=== PATIENT | male | born 1985 | race Caucasian/White ===

== ENCOUNTER 2017-10-21 10:27 | Emergency (ER) | payer MEDICAID ==
[~2017-10-21] VITALS: Ht 175.3 cm; Wt 66.0 kg
[~2017-10-21 10:27] MED LIST: CYCL-1 PO; HYDR50TA65 PO; KLONIPIN; ONDA4TAB6 PO
[2017-10-21 10:32] VITALS: BP 138/37
== END 2017-10-21 11:14 | disposition left against medical advice (07) ==
LOC: ER 10:28
DX: Z00.8 Encounter for other general examination (principal); Z53.21 Procedure and treatment not carried out due to patient leaving prior to being seen by health care provider

== ENCOUNTER 2018-05-14 09:46 | Emergency (ER) | payer MEDICAID ==
[~2018-05-14] VITALS: Ht 177.8 cm; Wt 191.0 kg
[2018-05-14 09:50] VITALS: BP 131/68
[2018-05-14] MEDS ORDERED: LIT300C PO (10:21)
[2018-05-14] MEDS ORDERED: QUET25TA PO (10:21)
== END 2018-05-14 10:32 | disposition home or self-care (01) ==
LOC: ER 09:46
DX: F41.9 Anxiety disorder, unspecified (principal); G89.29 Other chronic pain; F15.90 Other stimulant use, unspecified, uncomplicated; F11.90 Opioid use, unspecified, uncomplicated; Z76.0 Encounter for issue of repeat prescription; Z60.2 Problems related to living alone; Z56.0 Unemployment, unspecified; Z79.899 Other long term (current) drug therapy
CPT/HCPCS: 99283

== ENCOUNTER 2018-09-01 17:00 | Emergency (ER) | payer MEDICAID ==
[~2018-09-01] VITALS: Ht 177.8 cm; Wt 73.1 kg
[~2018-09-01 17:00] MED LIST changes: +LIT300C PO; +QUET25TA PO
[2018-09-01 18:36] VITALS: BP 118/78
--- NOTE | 2018-09-01 19:16 | NUR ---
pt is 33 yo male c/o feeling "like suicide...i would go to [facility] and get my sleeping pills...I like hurting a couple people", pt would not say who he would hurt "I am not naming names...I am just very angry", pt did meth 4 days ago, has attempted suicide in the past by cutting wrists, pt is waiting to evaluated
--- NOTE | 2018-09-01 19:25 | NUR ---
pt left fast track, tore name band off and went to elevator, security aware
== END 2018-09-01 19:38 | disposition left against medical advice (07) ==
LOC: ER 17:00
DX: F29 Unspecified psychosis not due to a substance or known physiological condition (principal); Z53.21 Procedure and treatment not carried out due to patient leaving prior to being seen by health care provider